=== PATIENT | male | born 1965 | race Caucasian/White ===

== ENCOUNTER 2025-06-06 11:03 | Emergency (ER) | payer SELFPAY ==
[~2025-06-06] VITALS: Ht 188 cm; Wt 104.3 kg
[2025-06-06 11:41] VITALS: RESP 17; TEMP 98.4
[2025-06-06 13:37] LABS: BASOPHILS % 0.4 % (0.0-1.0); EOSINOPHILS % 0.7 % (0.0-6.0); LYMPHOCYTES % 18.4 % (18.0-39.1); MONOCYTES % 6.5 % (4.4-11.3); NEUTROPHILS % 73.5 % (38.7-80.0); RED CELL DISTRIBUTION WIDTH 13.4 % (11.7-14.4)
[2025-06-06] MEDS ORDERED: HYDRALAZINE HCL 20 MG/ML VIAL ONE (13:54)
[2025-06-06 14:03] LABS: EST GLOMERULAR FILTRATION RATE 96.0 ML/MIN (>=60)
[2025-06-06] MEDS: MECLIZINE HCL 12.5 MG TAB PO ONE (14:49)
[2025-06-06 14:50] VITALS: BP 198/110
[2025-06-06] MEDS: HYDRALAZINE HCL 20 MG/ML VIAL IV STA (14:50)
[2025-06-06] MEDS ORDERED: LISINOPRIL10 MG PO (15:01)
[2025-06-06 15:15] VITALS: PULSE 89; O2SAT 98
== END 2025-06-06 15:46 | disposition home or self-care (01) ==
LOC: ER 11:07
DX: I10 Essential (primary) hypertension (principal); R51.9 Headache, unspecified; R42 Dizziness and giddiness
CPT/HCPCS: 36415; 70450; 80053; 84484; 85025; 93005; 99284; J0360; J8597